=== PATIENT | female | born 1950 | race Caucasian/White ===

== ENCOUNTER 2017-05-16 12:09 | Emergency (ER) | payer BC ==
[~2017-05-16] VITALS: Ht 160 cm; Wt 60.5 kg
[2017-05-16 12:16] VITALS: Ht 160 cm; Wt 60.5 kg
[2017-05-16] MEDS ORDERED: SODIUM CHLORIDE 0.9% 1000ML 1,000 ML IV STA (12:23)
--- NOTE | 2017-05-16 12:44 | EMERGENCY ROOM VISIT NOTE ---
History Report prepared by Sanjay: Ankush Al Under the Supervision of: Dr. Tomasz Marie M.D. First contact with patient: 12:21 Chief Complaint: SYNCOPE (NEAR SYNCOPE) Stated Complaint: COUGH, PASSED OUT Nursing Triage Summary: pt reports cough and cold sx X 2 weeks today pt reports after using the restroom I was standing and became dizzy and passed out pt denies striking head denies pain in extremities History of Present Illness The patient is a 66 year old white female who presents to the ED with a cc of a syncopal episode occurring just prior to arrival. Episode occurred shortly after standing up following urinating. Event was unwitnessed. Patient is unsure how long she was down, but estimates a few minutes. She reports having diarrhea following this, and becoming diaphoretic. No history of seizures. Positive dry cough x2 weeks. Negative numbness, tingling, weakness, SOB, leg swelling, headache, neck pain, back pain, chest pain, loss of continence, fevers, bloody stool. No smoking. No recent prolonged travel. No recent antibiotic use. Patient was seen at a [place] [facility] just prior to arrival, had a normal ECG, and was found to have low blood pressure. Source of History: patient Onset: Shortly prior to arrival Position: other (global) Quality: other (syncope) Timing: other (episode) Associated Symptoms: + cough (dry, x2 weeks), No fevers, No headache, No neck pain, No chest pain, No SOB, No abdominal pain, No back pain, No hematochezia, No weakness, No numbness Note: Negative tingling, leg swelling, headache, loss of continence. Review of Systems See HPI for pertinent positives and negatives. A total of ten systems were reviewed and were otherwise negative. Past Medical & Surgical Medical Problems: (1) No Known Active Medical Problems Family History No pertinent family history stated. Social History Smoking Status: Never Smoker Marital Status: Housing Status: lives with family Current/Historical Medications Scheduled Azithromycin (Zithromax Z-[place]), 1 PKT PO UD Biotin (Biotin 5000), 1 CAP PO DAILY Allergies Coded Allergies: No Known Allergies (Unverified , 05/16/17) Physical Exam Vital Signs Date Time Temp Pulse Resp B/P (MAP) Pulse Ox O2 Delivery O2 Flow Rate FiO2 05/16/17 15:14 36.8 82 16 114/66 95 05/16/17 13:59 88 17 109/70 96 Room Air 05/16/17 13:14 121/75 119/73 103/76 05/16/17 12:55 84 05/16/17 12:53 97 Room Air 05/16/17 12:16 36.7 93 20 115/74 94 Room Air Physical Exam GENERAL: Awake, alert, well-appearing, NAD HENT: Normocephalic, atraumatic. EYES: Normal conjunctiva. Sclera non-icteric. NECK: Supple. No nuchal rigidity. FROM. RESPIRATORY: CTAB, no rhonchi, wheezing, crackles CARDIAC: RRR, no MRG ABDOMEN: Soft, NTND, BS+ MSK: No chest wall TTP, no LE edema NEURO: GCS 15, CN 2-12 intact, moves all 4s on command SKIN: No rash or jaundice noted. Medical Decision & Procedures ER Provider Diagnostic Interpretation: Radiology results as stated below per my review and radiologist interpretation: HEAD WITHOUT CONTRAST (CT) Findings: The paranasal sinuses and mastoid air cells are clear. The calvarium and skull base are intact. The ventricles and sulci are within normal limits. There is no mass, hematoma, midline shift, or acute infarct. Impression: No acute intracranial abnormality. The above report was generated using voice recognition software. It may contain grammatical, syntax or spelling errors. Electronically signed by: Jasmeet Mg M.D. 05/16/2017 1:32 PM CHEST ONE VIEW PORTABLE FINDINGS: The bones soft tissues and hemidiaphragms are normal. The cardiomediastinal silhouette is normal. The lungs are clear. The pulmonary vasculature is normal. IMPRESSION: Negative chest. The above report was generated using voice recognition software. It may contain grammatical, syntax or spelling errors. Electronically signed by: Jasmeet gM M.D. 05/16/2017 12:47 PM Laboratory Results 05/16/17 12:55 Red Blood Count 4.66, Mean Corpuscular Volume 88.8, Mean Corpuscular Hemoglobin 31.1, Mean Corpuscular Hemoglobin Concent 35.0, Mean Platelet Volume 9.5, Neutrophils (%) (Auto) 72.2, Lymphocytes (%) (Auto) 12.4, Monocytes (%) (Auto) 14.6, Eosinophils (%) (Auto) 0.0, Basophils (%) (Auto) 0.4, Neutrophils # (Auto ) 3.62, Lymphocytes # (Auto) 0.62, Monocytes # (Auto) 0.73, Eosinophils # (Auto ) 0.00, Basophils # (Auto) 0.02 05/16/17 12:55 Test 05/16/17 12:55 05/16/17 13:15 White Blood Count 5.01 K/uL (4.8-10.8) Red Blood Count 4.66 M/uL (4.2-5.4) Hemoglobin 14.5 g/dL (12.0-16.0) Hematocrit 41.4 % (37-47) Mean Corpuscular Volume 88.8 fL (80-100) Mean Corpuscular Hemoglobin 31.1 pg (25-34) Mean Corpuscular Hemoglobin Concent 35.0 g/dl (32-36) Platelet Count 224 K/uL (130-400) Mean Platelet Volume 9.5 fL (7.4-10.4) Neutrophils (%) (Auto) 72.2 % Lymphocytes (%) (Auto) 12.4 % Monocytes (%) (Auto) 14.6 % Eosinophils (%) (Auto) 0.0 % Basophils (%) (Auto) 0.4 % Neutrophils # (Auto) 3.62 K/uL (1.4-6.5) Lymphocytes # (Auto) 0.62 K/uL (1.2-3.4) Monocytes # (Auto) 0.73 K/uL (0.11-0.59) Eosinophils # (Auto) 0.00 K/uL (0-0.5) Basophils # (Auto) 0.02 K/uL (0-0.2) RDW Standard Deviation 42.3 fL (36.4-46.3) RDW Coefficient of Variation 13.0 % (11.5-14.5) Immature Granulocyte % (Auto) 0.4 % Immature Granulocyte # (Auto) 0.02 K/uL (0.00-0.02) Prothrombin Time 11.0 SECONDS (9.0-12.0) Prothromb Time International Ratio 1.0 (0.9-1.1) Activated Partial Thromboplast Time 28.4 SECONDS (21.0-31.0) Partial Thromboplastin Ratio 1.1 Anion Gap 8.0 mmol/L (3-11) Est Creatinine Clear Calc Drug Dose 46.2 ml/min Estimated GFR () 68.8 Estimated GFR (Non- 59.4 BUN/Creatinine Ratio 14.2 (10-20) Calcium Level 8.9 mg/dl (8.5-10.1) Phosphorus Level 3.5 mg/dl (2.5-4.9) Magnesium Level 2.2 mg/dl (1.8-2.4) Total Bilirubin 0.3 mg/dl (0.2-1) Direct Bilirubin < 0.1 mg/dl (0-0.2) Aspartate Amino Transf (AST/SGOT) 29 U/L (15-37) Alanine Aminotransferase (ALT/SGPT) 31 U/L (12-78) Alkaline Phosphatase 75 U/L (45-117) Troponin I < 0.015 ng/ml (0-0.045) Total Protein 8.2 gm/dl (6.4-8.2) Albumin 3.9 gm/dl (3.4-5.0) Thyroid Stimulating Hormone (TSH) 2.390 uIu/ml (0.300-4.500) Urine Color YELLOW Urine Appearance CLEAR (CLEAR) Urine pH 5.0 (4.5-7.5) Urine Specific [place] 1.013 (1.000-1.030) Urine Protein NEG (NEG) Urine Glucose (UA) NEG (NEG) Urine Ketones 1+ (NEG) Urine Occult Blood NEG (NEG) Urine Nitrite NEG (NEG) Urine Bilirubin NEG (NEG) Urine Urobilinogen NEG (NEG) Urine Leukocyte Esterase TRACE (NEG) Urine WBC (Auto) 1-5 /hpf (0-5) Urine RBC (Auto) 0-4 /hpf (0-4) Urine Hyaline Casts (Auto) 5-10 /lpf (0-5) Urine Epithelial Cells (Auto) 20-30 /lpf (0-5) Urine Bacteria (Auto) NEG (NEG) Laboratory results reviewed by me Medications Administered Medications (Trade) Dose Ordered Sig/Leeroy Route Start Time Stop Time Status Last Admin Dose Admin Sodium Chloride 1,000 ml @ 999 mls/hr Q1H1M STAT IV 05/16/17 12:23 05/16/17 13:23 DC 05/16/17 13:58 999 MLS/HR ECG Per My Interpretation Indication: syncope Rate (beats per minute): 79 Rhythm: normal sinus Findings: other (Normal intervals. T-wave flattening in AVL. No STS changes. Right axis deviation.) ED Course 1231: The patient was evaluated in room B6. A complete history and physical exam was performed. 1410: I reevaluated the patient. Discussed results and discharge instructions: she verbalized understanding and agreement. The patient is ready for discharge. Medical Decision The patient is a 66 year old white female who presents to the ED with a cc of a syncopal episode occurring just prior to arrival. Differential diagnosis: Etiologies such as vasovagal event, infection, hypoglycemia, electrolyte abnormalities, cardiac sources, intracerebral event, toxicologic, neurologic, as well as others were entertained. Patient was seen and evaluated at the bedside. Patient did complain of a syncopal episode earlier this morning. Patient believes that her downtime was maybe minutes. Patient states this happened soon after urinating and standing up. Patient did feel little lightheaded but denies any chest pain or shortness of breath. Patient denies any tongue biting or incontinence of bowel or bladder. Patient has complained of a nonproductive cough and cold-like symptoms had been ongoing 2 weeks. Patient was seen in clinic today but was referred here for further evaluation. Patient has a nonfocal neurologic exam and is very well-appearing. Patient has no lower extremity swelling or other focal signs on her examination. Patient did have blood work, EKG, chest x-ray, CT of the brain completed. Patient's EKG was unremarkable. Patient had normal blood work. TSH normal. Patient is not anemic. This may be related to dehydration and/or possibly situational syncope given that she did just finish using the restroom. This also may be related to orthostasis. Patient denies any chest pain or shortness of breath. Patient again is very well-appearing. Patient was deemed suitable for outpatient follow-up and treatment at this time. Given the patient's persistent cough she was given a Z-Israel to take at home to see if that helped improve her cough. Patient was also told to continue acea-sks-[id number] type medications to help. Medication Reconcilliation Current Medication List: was personally reviewed by me Blood Pressure Screening Patient's blood pressure: Normal blood pressure Blood pressure disposition: Did not require urgent referral Impression Primary Impression: Syncope Additional Impression: Chronic bronchitis Scribe Attestation The scribe's documentation has been prepared under my direction and personally reviewed by me in its entirety. I confirm that the note above accurately reflects all work, treatment, procedures, and medical decision making performed by me. Departure Information Dispostion Home / Self-Care Prescriptions Azithromycin (ZITHROMAX Z-[place]RA[place]) 250 Mg Tab 1 PKT PO UD for 5 Days, #6 TAB Prov: Toamsz Marie M.D. 05/16/17 Referrals Meghann Arriola C.R.N.P. (PCP) Patient Instructions Bronchitis Acute, My [facility], Syncope Additional Instructions Please return to the emergency department if you have worsening or recurrent symptoms not amenable to at-home treatment. Please call for a follow-up appointment with her primary care physician. Please take your medications as prescribed. If you have other concerns and/or complaints please feel free to also call your primary care physician's office or return the ED for further evaluation, management, and treatment. You were found to have an elevated blood pressure today (>120 sytolic or >90 diastolic). Per medicare guidelines, you need to follow up with this blood pressure screening with your Primary Care Physician (PCP). For a new PCP call [phone]. You received narcotic or benzodiazepene medication while in the emergency room today. This is an addictive medication that may cause drowziness as well as constipation. Do not drive, operate heavy machinery, or drink alcohol under the influence of this medication. You may take 600 mg Ibuprofen every 6 hours as needed for pain with food for no more than 2 consecutive days. You may take tylenol 1000 mg every 6 hours as needed for pain. You may take motrin and tylenol separately or at the same time. Take your medications as prescribed. If taking an antibiotic consider taking a probiotic and/or eating yogurt, but at the least, please take with food as it can cause upset stomach. You have been examined and treated today on an emergency basis only. This is not a substitute for, or an effort to provide, complete comprehensive medical care. It is impossible to recognize and treat all injuries or illnesses in a single emergency department visit. It is therefore important that you follow up closely with [facility], your PCP, and/or your specialist(s). Call as soon as possible for an appointment. Thank you for your time and consideration. I look forward to speaking with you again soon. Please don't hesitate to call us if you have any questions. Problem Qualifiers Primary Impression: Syncope Syncope type: unspecified Qualified Codes: R55 - Syncope and collapse Additional Impression: Chronic bronchitis Chronic bronchitis type: unspecified Qualified Codes: J42 - Unspecified chronic bronchitis
--- NOTE | 2017-05-16 12:48 | DIAGNOSTIC IMAGING REPORT ---
CHEST ONE VIEW PORTABLE CLINICAL HISTORY: EVALUATE ALTERED MENTAL STATUS/WEAKNESS dyspnea COMPARISON STUDY: No previous studies for comparison. FINDINGS: The bones soft tissues and hemidiaphragms are normal. The cardiomediastinal silhouette is normal. The lungs are clear. The pulmonary vasculature is normal. IMPRESSION: Negative chest. The above report was generated using voice recognition software. It may contain grammatical, syntax or spelling errors. Electronically signed by: Jasmeet Mg M.D. 05/16/2017 12:47 PM Dictated Date/Time: 05/16/2017 12:46 PM
[2017-05-16 12:53] VITALS: O2SAT 97
[2017-05-16 13:11] LABS: BASO % 0.4 %; BASO ABS # 0.02 K/uL (0-0.2); HEMATOCRIT 41.4 % (37-47); HEMOGLOBIN 14.5 g/dL (12.0-16.0); IG# 0.02 K/uL (0.00-0.02); LYMPH % 12.4 %; LYMPH ABS # 0.62 K/uL (1.2-3.4); MEAN CELL VOLUME 88.8 fL (80-100); MEAN CORPUSCULAR HEMOGLOBIN 31.1 pg (25-34); MEAN PLATELET VOLUME 9.5 fL (7.4-10.4); MONO % 14.6 %; MONO ABS # 0.73 K/uL (0.11-0.59); NEUT % 72.2 %; NEUT ABS # 3.62 K/uL (1.4-6.5); PLATELET COUNT 224 K/uL (130-400); RED CELL DISTRIBUTION WIDTH SD 42.3 fL (36.4-46.3); WHITE BLOOD COUNT 5.01 K/uL (4.8-10.8)
[2017-05-16 13:19] LABS: PTT PATIENT 28.4 SECONDS (21.0-31.0)
[2017-05-16 13:29] LABS: ALBUMIN 3.9 gm/dl (3.4-5.0); ALT/SGPT 31 U/L (12-78); AST/SGOT 29 U/L (15-37); BLOOD UREA NITROGEN 14 mg/dl (7-18); CALCIUM 8.9 mg/dl (8.5-10.1); CARBON DIOXIDE 24 mmol/L (21-32); CREATININE 0.99 mg/dl (0.60-1.20); GLUCOSE 103 mg/dl (70-99); POTASSIUM 4.2 mmol/L (3.5-5.1); SODIUM 134 mmol/L (136-145)
--- NOTE | 2017-05-16 13:34 | DIAGNOSTIC IMAGING REPORT ---
HEAD WITHOUT CONTRAST (CT) CT DOSE: 638.56 mGycm HISTORY: Mental status change EVALUATE ALTERED MENTAL STATUS/WEAKNESS TECHNIQUE: Multiaxial CT images of the head were performed without the use of intravenous contrast. A dose lowering technique was utilized adhering to the principles of ALARA. Comparison: None. Findings: The paranasal sinuses and mastoid air cells are clear. The calvarium and skull base are intact. The ventricles and sulci are within normal limits. There is no mass, hematoma, midline shift, or acute infarct. Impression: No acute intracranial abnormality. The above report was generated using voice recognition software. It may contain grammatical, syntax or spelling errors. Electronically signed by: Jasmeet Mg M.D. 05/16/2017 1:32 PM Dictated Date/Time: 05/16/2017 1:31 PM
[2017-05-16 13:40] LABS: ALKALINE PHOSPHATASE 75 U/L (45-117); PHOSPHORUS 3.5 mg/dl (2.5-4.9); TOTAL PROTEIN 8.2 gm/dl (6.4-8.2)
[2017-05-16] MEDS ORDERED: AZITTAB PO (14:09)
[2017-05-16] MEDS ORDERED: BIOTCAP2 PO (14:13)
[2017-05-16 15:14] VITALS: BP 114/66; PULSE 82; TEMP 36.8; O2SAT 95
== END 2017-05-16 15:15 | disposition home or self-care (01) ==
LOC: C.EDB 12:10
DX: R55 Syncope and collapse (principal); J42 Unspecified chronic bronchitis; R19.7 Diarrhea, unspecified